=== PATIENT | female | born 1995 | race Caucasian/White ===

== ENCOUNTER 2023-12-09 08:49 | Inpatient (IN) | payer SELFPAY ==
[2023-12-09] VITALS (49 sets, daily range): BP systolic 92–124; BP diastolic 45–71; PULSE 41–93; RESP 16–19; TEMP 36.9; O2SAT 98–100; BMI 38.2
[2023-12-09 09:25] LABS: Charge for UA Resulting for Rev
[2023-12-09] MEDS: lactated ringers 1,000 ML 999 ML IV (09:30)
[2023-12-09 09:33] LABS: Basophils % 0.3 %; Eosinophils # 0.2 10^3/uL (0.0-0.8); Eosinophils % 1.8 %; Hematocrit 35.7 % (36-47); Lymphocytes # 1.3 10^3/uL (0.8-4.8); Lymphocytes % 10.4 %; Mean Corpuscular HGB Conc 34.2 g/dL (30-55); Mean Corpuscular Hemoglobin 30.5 pg (27-33); Mean Corpuscular Volume 89.3 fl (85-98); Mean Platelet Volume 11.5 fL (7.4-10.4); Monocytes # 0.7 10^3/uL (0.2-0.9); Monocytes % 6.1 %; Neutrophils # 9.81 10^3/uL (1.8-7.7); Neutrophils % 81.1 %; Nucleated Red Blood Cells % 0 %; Platelet Count 217 10^3/cmm (157-399); Red Cell Distribution Width 13.4 % (12.1-15.1); White Blood Count 12.11 10^3/uL (3.29-11.43)
[2023-12-09 09:35] LABS: Bilirubin Urine Negative (Negative); Blood Urine 3+ (Negative); Glucose Urine UA Negative (Normal); Ketones Urine Trace (Negative); Leukocyte Esterase Urine 2+ (Negative); Nitrate Urine Negative (Negative); Protein Urine Trace (Negative); Specific Gravity, Urine 1.024 (1.005-1.030); Urine Appearance Cloudy (CLEAR); Urine Color Yellow (Yellow)
[2023-12-09] MEDS: terbutaline 1 mg/mL INJ 0.25 MG SUBCUT (09:39)
[2023-12-09] MEDS: ampicillin 2,000 MG in sodium chloride 0.9% (plus) 50 ML 100 MG IV (09:39)
[2023-12-09 09:43] LABS: Bacteria Urine Trace /hpf; Hyaline Casts Urine 1.21 /lpf; Squamous Epithelial Cell Urine 0-5 /hpf (0-5); WBC Urine 21-50 /hpf (0-5)
--- NOTE | 2023-12-09 09:49 | P.ANESASSM_ITS ---
Pre-Anesthetic Assessment Height/Weight: Pulse Resp BP Pulse Ox 56 L 16 116/60 100 12/09/23 09:46 12/09/23 09:05 12/09/23 09:44 12/09/23 09:46 repeat Familial anesthetic complications: None Was Beta Chuyita taken within 24 hours: N/A Was Clonidine taken within 24 hours: N/A Last intake: > 8hrs Social Tobacco and No alcohol Exam alert, oriented x 3, clear to auscultation bilaterally and regular rate & rhythm Airway Mallampati: Class III Dentition: full Metabolic Morbid Obesity Anesthetic Plan ASA status: 2 Anesthesia: Regional (specify below) Risk of > 500 ml blood loss (7ml/kg in children): Yes, adequate IV access and fluids planned Medications/Allergies Current Medications Generic Name Dose Route Start Last Admin Trade Name Freq PRN Reason Stop Dose Admin Lactated Ringer's 1,000 mls @ 999 mls/hr 12/09/23 09:16 12/09/23 09:30 Lactated Ringers IV 999 mls/hr .Q1H1M PRN Administration BLEEDING Ampicillin Sodium 2,000 mg/ 50 mls @ 100 mls/hr 12/09/23 09:29 12/09/23 09:39 Sodium Chloride IV 12/09/23 09:58 100 mls/hr ONCE ONE Administration Protocol Data Anesthesia 12/09/23 09:05 12/09/23 09:05 Short CBC 12/09/23 Range/Units 09:05 WBC 12.11 H (3.29-11.43) 10^3/uL Hgb 12.20 (11.27-16.99) g/dL Hct 35.7 L (36-47) % MCV 89.3 (85-98) fl Plt Count 217 (157-399) 10^3/cmm Neut % (Auto) 81.1 % Neut # (Auto) 9.81 H (1.8-7.7) 10^3/uL Urine 12/09/23 Range/Units 09:05 Urine Color Yellow (Yellow) Urine Appearance Cloudy A (CLEAR) Urine pH 7.0 (5-7) Ur Specific [place] 1.024 (1.005-1.030) Urine Protein Trace A (Negative) Urine Glucose (UA) Negative (Normal) Urine Ketones Trace (Negative) Urine Nitrate Negative (Negative) Urine Bilirubin Negative (Negative) Ur Leukocyte Esterase 2+ H (Negative) Urine RBC 11-20 (0-2) /hpf Urine WBC 21-50 (0-5) /hpf Cardiac Studies: 2 No Data to Display
[2023-12-09 09:51] LABS: Add Urine Culture? Yes
[2023-12-09 09:52] LABS: Alanine Aminotransferase 13 U/L (0-33); Albumin Level 3.5 g/dL (3.5-5.2); Alkaline Phosphatase 109 U/L (35-105); Anion Gap 16.7 (5-19); Aspartate Amino Transferase 12 U/L (0-32); Blood Urea Nitrogen 8 mg/dL (6-20); Carbon Dioxide 18 mmol/L (22-29); Chloride 107 mmol/L (98-107); Globulin 3.2 g/dL (1.3-4.6); Glomerular Filtration Rate 119.9 mL/min (90-130); Glucose 88 mg/dL (65-115); Osmolality Calculated 284 mOsm/kg (285-295); Potassium 3.7 mmol/L (3.5-5.1); Sodium 138 mmol/L (136-145); Total Bilirubin 0.2 mg/dL (0.15-1.2); Total Protein 6.7 g/dL (6.6-8.7)
[2023-12-09 10:13] LABS: HIV 1 & 2 Antibody Non-Reactive (Non-Reactiv); HIV 1 & 2 Antigen Non-Reactive (Non-Reactiv)
[2023-12-09 10:19] LABS: Hepatitis B Surface Antigen Non-Reactive (Nonreactive)
[2023-12-09 10:20] LABS: Rapid Plasma Reagin Syphilis Nonreactive (Nonreactive)
--- NOTE | 2023-12-09 10:24 | P.HP_ITS ---
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 Patient denies vaginal bleeding or leakage of fluid. Patient has history of 2 previous sections 09/2020 emergency for decreased heart tones and 01/2023 repeat , without complications. Patient recently moved to [place] from [place] and has not called to be scheduled for care. She states her NINA is by early ultrasound. Risk and benefits of repeat section to include bleeding, infection, injury to pelvic organs reviewed with patient and patient verbalizes understanding and consent signed. EFM?category 2 with contractions every 3 to 5 minutes moderate intensity. Cervix?6 cm / 90%/-1 vertex presentation with bloody show noted. Past medical history?asthma, COPD Surgical history? x 2, tonsils and adenoids. Social history?patient admits to smoking cigarettes greater than 1 pack/day x 12 years and daily marijuana use last use 9 PM 12/08/2023. Occasional alcohol. Family history?relatively unknown is distant from her family. Present Details : 3 Para: 2 Review of Systems 2 General: Reports: 10 or more systems reviewed and unremarkable except in HPI and below Medications/Allergies Home Medications Medication Instructions Recorded Confirmed Last Taken Type No Known Home Medications 12/09/23 12/09/23 Unknown History Allergies Allergy/AdvReac Type Severity Reaction Status Date / Time adhesive Allergy ALGY-Rash Verified 12/09/23 10:15 Vitals/I&O/Wt Last Vital Signs Pulse 93 12/09/23 10:21 Resp 16 12/09/23 09:05 BP 116/60 12/09/23 09:44 Pulse Ox 100 12/09/23 10:21 O2 Del Method Room Air 12/09/23 09:33 Weight last 48 hrs Weight 110.677 kg Physical Exam 2 Narrative: 28-year-old female alert and orient x 3 in no acute distress HENMT: COMMON NORMALS: normocephalic Resp: COMMON NORMALS: normal respiratory effort and clear to auscultation bilaterally Cardio: COMMON NORMALS: regular rate, regular rhythm, S1 normal heart sound present, S2 normal heart sound present and No murmurs present (Cardio) Back/Pelvis: OTHER: Abdomen?soft, gravid no CVA tenderness to palpation. Cervix 6 cm / 90% effaced/-1 vertex presentation with bloody show Extremity: COMMON NORMALS: normal to inspection and no clubbing, cyanosis or edema Data 12/09/23 09:05 12/09/23 09:05 Results Labs OB ([facility]): 2 Blood Type A Positive 12/09/23 Antibody Screen Negative 12/09/23 Hct 35.7 % (36-47) L 12/09/23 Hgb 12.20 g/dL (11.27-16.99) 12/09/23 Rho(D) Type Rh positive 12/09/23 Plt Count 217 10^3/cmm (157-399) 12/09/23 Hep Bs Antigen Non-reactive (Nonreactive) 12/09/23 Rubella IgG Antibody Pending 12/09/23 RPR Nonreactive (Nonreactive) 12/09/23 HIV 1&2 Ab & HIV 1 Ag Non-reactive (Non-Reactiv) 12/09/23 C.trachomatis RNA (TMA) Pending 12/09/23 N.gonorrhoeae RNA (TMA) Pending 12/09/23 Chlamydia/GC Comment Pending 12/09/23 Urine Opiates Screen Pending 12/09/23 Ur Barbiturates Screen Pending 12/09/23 Ur Phencyclidine Scrn Pending 12/09/23 Ur Amphetamines Screen Pending 12/09/23 U Benzodiazepines Scrn Pending 12/09/23 Urine Cocaine Screen Pending 12/09/23 U Marijuana (THC) Screen Pending 12/09/23 Micro Urine Specimen 12/09/23 A&P Assessment and plan (1) 36 weeks gestation of : (2) Active labor: Treated with antibiotics due to unknown GBS status. (3) Previous section: (4) Asthma: (5) Tobacco abuse: (6) Marijuana use during : Plan Admit to labor and delivery and prepare for repeat section. Attestations 2 Medical Necessity Statement*: Patient admitted to labor and delivery at 36.6 weeks gestation in active labor at 6 cm dilation. Patient is previous x 2. And desires repeat section. Coding Level of Care Code Acute Code for Chg Fwd Diagnoses 36 weeks gestation of Z3A.36 Active labor O60.00 Previous section Z98.891 Asthma J45.909 Tobacco abuse Z72.0 Marijuana use during O99.320; F12.90
[2023-12-09] MEDS: famotidine 20 mg/2 mL INJ IVP (10:32)
[2023-12-09 10:37] LABS: Amphetamines Screen Urine Negative (Negative); Barbiturates Screen Urine Negative (Negative); Benzodiazepines Screen Urine Negative (Negative); Cocaine Screen Urine Negative (Negative); Opiate Screen Urine Negative (Negative); PCP Screen Urine Negative (Negative); THC Screen Urine Positive (Negative)
[2023-12-09] MEDS: ceFAZolin 2,000 mg SDV 2000 MG IVP (11:00)
[2023-12-09 11:03] LABS: Rubella IgG 27.3 IU/mL (0.0-10.0)
--- NOTE | 2023-12-09 12:00 | PM.OP ---
Operative Report Date of procedure: December 09, 2023 Pre-op diagnosis: 36.6-week IUP in active labor Previous x 2 Unknown GBS status Post-op diagnosis: Same Post-op findings: Viable female nuchal cord x 1 Procedure done: 28-year-old female delivered via repeat low-transverse section viable baby girl after being admitted to labor and delivery in active labor. Patient had history of previous x 2 and desired elective repeat . Upon admission patient was 3 cm and progressed to 6 cm. Risk and benefits of repeat were reviewed and consent signed. Patient was taken to the surgical suite after anesthesia consultation and spinal anesthesia plan placed. Patient was repositioned in the dorsolithotomy position and dopplered heart tones in the 130s. Livingston catheter was placed for drainage during the procedure and the abdomen was prepped and draped in the standard fashion. Patient's pannus was taped up. Anesthesia level was found to be adequate. Pfannenstiel incision was made through the previous scar and dissected to the fascia. The fascia was incised and the incision lateralized. The rectus muscles entered in the midline and the peritoneum opened bluntly. A bladder flap was created with Metzenbaums and pickups and displaced. A a lower uterine incision was made and extended laterally. The infant's vertex was delivered through the incision atraumatically, nuchal cord x 1 was easily removed. Followed by delivery of the anterior then posterior shoulders with the remainder of the baby's body to follow. Good baby movement and spontaneous cry noted. The oral and nasal pathways bulb suction the umbilical cord clamped and cut. The baby was placed on the warmer her java j2ee technical lead and nursing staff was present. Cord blood was obtained and handed off. The placenta was removed from the uterus, Pitocin added to the current infusing IV fluid in a bolus manner. The uterus was exteriorized wiped clean with a moist lap sponge. The uterine incision was then closed with 0 Vicryl in a running interlocking stitch with good approximation and hemostasis. The posterior cul-de-sac and the sidewalls were wiped clean with a moist lap sponge and the uterus replaced in the abdomen. The peritoneum and rectus muscle were closed with 2-0 Vicryl the fascia closed in a running stitch with 0 Vicryl. The subcu fat approximated with 2-0 Vicryl. And the skin closed with 4-0 Vicryl in a subcuticular stitch. Good hemostasis was noted. The incision was cleansed and covered with a pressure dressing. Needle instrument sponge count is correct. Specimens removed/disposition: Placenta Surgeon: Josiane Song DO Estimated blood loss (mL): 1,000 Urine output: 200ml Complications: None Findings: Viable baby girl Weight pending 8/9 Condition: stable Disposition: floor Brief History: 28-year-old female G3, P3 delivered by repeat low-transverse section. Procedure: See above procedure note
--- NOTE | 2023-12-09 12:30 | ANE.PACU2 ---
Inpatient post-anesthesia follow up: Airway intact: Yes Vital signs: Temperature 98.3 F Pulse Rate 57 Respiratory Rate 16 Blood Pressure 117/61 Pulse Oximetry 98 Oxygen Delivery Me thod Room Air Oxygen Flow Rate Fraction of Inspir ed Oxygen Hydration adequate: Yes Nausea and vomiting: No Pain level: 1 Mental status: Baseline
[2023-12-09] MEDS: lactated ringers 1,000 ML 125 ML IV (15:04)
[2023-12-09] MEDS: ketorolac 30 mg/mL INJ IVP (18:49)
[2023-12-09] MEDS: sodium chloride 0.9% 500 ML 999 ML IV (18:54)
[2023-12-09] MEDS: HYDROcodone-acetaminophen 5-325 mg Tablet PO ×2 (20:17→23:47)
[2023-12-09] MEDS: simethicone 80 mg Chew PO (21:49)
[2023-12-09 23:47] LABS: Hematocrit 28.8 % (36-47); Mean Corpuscular HGB Conc 33.3 g/dL (30-55); Mean Corpuscular Hemoglobin 30.4 pg (27-33); Mean Corpuscular Volume 91.1 fl (85-98); Mean Platelet Volume 11.5 fL (7.4-10.4); Platelet Count 176 10^3/cmm (157-399); Red Blood Count 3.16 10^6/uL (3.85-5.65); Red Cell Distribution Width 13.8 % (12.1-15.1); White Blood Count 11.28 10^3/uL (3.29-11.43)
[2023-12-10] MEDS: ketorolac 30 mg/mL INJ IVP (01:12)
[2023-12-10 01:30] VITALS: BP 96/54; PULSE 44
[2023-12-10 06:14] VITALS: BP 91/49; PULSE 53
[2023-12-10] MEDS: PRENATAL VIT NO.130/IRON/FOLIC 1 EACH TABLET PO (08:29)
[2023-12-10] MEDS: HYDROcodone-acetaminophen 5-325 mg Tablet PO ×3 (08:29→20:03)
[2023-12-10] MEDS: ferrous sulfate EC 325 mg Tablet PO ×2 (08:30→17:03)
[2023-12-10] MEDS: docusate sodium 100 mg Capsule PO ×2 (08:30→17:04)
--- NOTE | 2023-12-10 10:20 | P.PN_ITS ---
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 Patient doing well, denies dizziness, headache, chest pain or shortness of breath. Has been ambulating in room, and tolerating a regular diet and voiding. VSS?afebrile BP 91/49 Bandage removed, incision clean dry and intact. Discussed postop expectations of diet and ambulation. Patient encouraged to contact nursing staff if dizziness headaches chest pain or shortness of breath occur, and excessive vaginal bleeding. Patient verbalizes understanding. Also discussed probable home in the a.m. if no problems. Will need to follow-up with the women's clinic for follow-up. Patient encouraged to continue vitamins and iron daily due to postop anemia. Labor: Station: -3 Amniotic Membrane Status: Intact Monitor Mode: External Contraction Pattern: Regular Vitals/I&O/Wt Last Vital Signs Temp 98.4 F 12/09/23 12:25 Pulse 53 L 12/10/23 06:14 Resp 18 12/09/23 12:30 BP 91/49 12/10/23 06:14 Pulse Ox 98 12/09/23 12:30 O2 Del Method Room Air 12/09/23 12:30 12/09/23 12/10/23 12/10/23 22:59 06:59 14:59 Intake Total 979.167 / 3229.167 2000.833 / 5230.000 Output Total 125 / 1485 375 / 1860 Balance 854.167 / 5204.158 1819.833 / 3370 Weight last 48 hrs Weight 110.677 kg Physical Exam 2 Back/Pelvis: OTHER: Abdomen?soft, fundus firm Lochia light Incision?clean dry and intact. Extremity: COMMON NORMALS: normal to inspection, no clubbing, cyanosis or edema and no calf tenderness Urinary Catheter Management: Livingston Latex: Cath Placed During This Visit: yes Reason for Continuing Indwelling Catheter: Acute Urinary Retention or Obstruction Urinary Catheter Date of Insertion: 12/09/23 Urinary Catheter Time of Insertion: 11:00 Data 12/09/23 23:39 12/09/23 09:05 A&P Assessment and plan (1) Acute blood loss anemia: Acute blood loss anemia?asymptomatic Encourage continuation of vitamins and iron daily (2) 36 weeks gestation of : (3) Active labor: (4) Previous section: S/p repeat low-transverse section (x3). (5) Asthma: (6) Tobacco abuse: Smoking cessation discussed. (7) Marijuana use during : Illegal drug use discouraged. Attestations 2 Medical Necessity Statement*: Admission to labor and delivery for management of labor, desires repeat C- section. Coding Level of Care Code Acute Code for Chg Fwd Diagnoses Acute blood loss anemia D62 36 weeks gestation of Z3A.36 Active labor O60.00 Previous section Z98.891 Asthma J45.909 Tobacco abuse Z72.0 Marijuana use during O99.320; F12.90
[2023-12-10 10:40] VITALS: BP 101/63; PULSE 51; RESP 16; TEMP 36.8
[2023-12-10 15:18] LABS: Chlamydia Trachomatis RNA TMA NOT DETECTED (NOT DETECTED); Neisseria Gonorrhoeae RNA, TMA NOT DETECTED (NOT DETECTED)
[2023-12-10] MEDS: ibuprofen 800 mg tablet PO ×2 (17:03→20:03)
[2023-12-10] MEDS: hyDROXYzine 25 mg Capsule 50 MG PO (17:14)
[2023-12-10 22:00] VITALS: RESP 16; TEMP 36.8
[2023-12-10 22:14] VITALS: BP 117/61; PULSE 57
[2023-12-10] MEDS: simethicone 80 mg Chew PO (22:15)
[2023-12-11 04:00] VITALS: RESP 18; TEMP 36.8
[2023-12-11 04:32] VITALS: BP 123/80; PULSE 60
[2023-12-11] MEDS: simethicone 80 mg Chew PO (04:34)
[2023-12-11] MEDS: HYDROcodone-acetaminophen 5-325 mg Tablet PO ×2 (04:34→08:51)
[2023-12-11] MEDS: docusate sodium 100 mg Capsule PO (08:06)
[2023-12-11] MEDS: ferrous sulfate EC 325 mg Tablet PO (08:06)
[2023-12-11] MEDS: PRENATAL VIT NO.130/IRON/FOLIC 1 EACH TABLET PO (08:06)
[2023-12-11] MEDS: ibuprofen 800 mg tablet PO (08:06)
--- NOTE | 2023-12-11 09:24 | PM.OBGYDC ---
Discharge Providers MAIL ORDER SORTER Date of Admission: 12/09/23 08:49 Date of Discharge: 12/11/23 Attending Provider at Admission: Josiane Song DO Attending Provider at Discharge: Tyson Perales MD Diagnoses at Discharge Discharge Diagnosis (1) Acute blood loss anemia: Status: Acute (2) 36 weeks gestation of : Status: Acute (3) Active labor: Status: Acute (4) Previous section: Status: Acute (5) Asthma: Status: Acute (6) Tobacco abuse: Status: Acute (7) Marijuana use during : Status: Acute Reason for Visit Reason for Visit: contractions Hospital Course Hospital Course Nadine Joshi is a 28 year old female G3, P2 at 36.6 weeks gestation with NINA 12/31/2023 admitted to labor and delivery with complaints of painful uterine contractions onset the night before coming to labor and delivery. Patient denies vaginal bleeding or leakage of fluid. Patient has history of 2 previous sections. Patient recently moved to [place] from [place] and has not called to be scheduled for care. She states her NINA is by early ultrasound. Came to labor and delivery in active labor. A repeat low-transverse delivery was performed without complication. Postop observation have been uneventful. He is afebrile and hemodynamically stable postoperative day 2. Tolerating diet well. Ambulating without difficulty. She was counseled regarding pelvic rest for 6 weeks (no sex, no tampons, no vaginal douches). Return to the emergency room if any fever, increased bleeding or pain. Information Peripartum Data: Delivery Method: Physical Exam Narrative: GA; alert and oriented x 3 HEENT: normal Breasts: engorged Nipples - skin intact Lungs; clear to auscultation Heart: regular rhythm, no murmurs. Abd: Appropriately tender. BS+. Uterine fundus below umbilicus. No Fundal Tenderness, minimal tenderness, incision clean and dry, no redness, pain or edema Perineum: normal lochia. Extremities: no edema, no cyanosis, no tenderness. Urinary Catheter Management: Livingston Latex: Cath Placed During This Visit: yes, but has since been removed by the nurse Reason for Continuing Indwelling Catheter: Acute Urinary Retention or Obstruction Urinary Catheter Date of Insertion: 12/09/23 Urinary Catheter Time of Insertion: 11:00 Date Urinary Catheter Removed: 12/10/23 Time Urinary Catheter Discontinued: 10:00 Discharge Data Studies Completed and Pending Pending at discharge Category Date Time Status Urine Culture Stat Lab 12/09/23 09:05 Results Laboratory Results WBC 11.28 10^3/uL (3.29-11.43) 12/09/23 23:39 RBC 3.16 10^6/uL (3.85-5.65) L 12/09/23 23:39 Hgb 9.60 g/dL (11.27-16.99) L 12/09/23 23:39 Hct 28.8 % (36-47) L 12/09/23 23:39 MCV 91.1 fl (85-98) 12/09/23 23:39 MCH 30.4 pg (27-33) 12/09/23 23:39 MCHC 33.3 g/dL (30-55) 12/09/23 23:39 RDW 13.8 % (12.1-15.1) 12/09/23 23:39 Plt Count 176 10^3/cmm (157-399) 12/09/23 23:39 MPV 11.5 fL (7.4-10.4) H 12/09/23 23:39 Neut % (Auto) 81.1 % 12/09/23 09:05 Lymph % (Auto) 10.4 % 12/09/23 09:05 [place] % (Auto) 6.1 % 12/09/23 09:05 Eos % (Auto) 1.8 % 12/09/23 09:05 Baso % (Auto) 0.3 % 12/09/23 09:05 Neut # (Auto) 9.81 10^3/uL (1.8-7.7) H 12/09/23 09:05 Lymph # (Auto) 1.3 10^3/uL (0.8-4.8) 12/09/23 09:05 [place] # (Auto) 0.7 10^3/uL (0.2-0.9) 12/09/23 09:05 Eos # (Auto) 0.2 10^3/uL (0.0-0.8) 12/09/23 09:05 Baso # (Auto) 0.0 10^3/uL (0.0-0.1) 12/09/23 09:05 Nucleated RBC % (auto) 0 % 12/09/23 09:05 Nucleated RBCs # 0.0 /100WBC 12/09/23 09:05 Sodium 138 mmol/L (136-145) 12/09/23 09:05 Potassium 3.7 mmol/L (3.5-5.1) 12/09/23 09:05 Chloride 107 mmol/L (98-107) 12/09/23 09:05 Carbon Dioxide 18 mmol/L (22-29) L 12/09/23 09:05 Anion Gap 16.7 (5-19) 12/09/23 09:05 BUN 8 mg/dL (6-20) 12/09/23 09:05 Creatinine 0.6 mg/dL (0.5-0.9) 12/09/23 09:05 GFR Calculation 119.9 mL/min (90-130) 12/09/23 09:05 Glucose 88 mg/dL (65-115) 12/09/23 09:05 Calculated Osmolality 284 mOsm/kg (285-295) L 12/09/23 09:05 Calcium 9.0 mg/dL (8.5-10.5) 12/09/23 09:05 Total Bilirubin 0.2 mg/dL (0.15-1.2) 12/09/23 09:05 AST 12 U/L (0-32) 12/09/23 09:05 ALT 13 U/L (0-33) 12/09/23 09:05 Alkaline Phosphatase 109 U/L (35-105) H 12/09/23 09:05 Total Protein 6.7 g/dL (6.6-8.7) 12/09/23 09:05 Albumin 3.5 g/dL (3.5-5.2) 12/09/23 09:05 Globulin 3.2 g/dL (1.3-4.6) 12/09/23 09:05 Urine Color Yellow (Yellow) 12/09/23 09:05 Urine Appearance Cloudy (CLEAR) A 12/09/23 09:05 Urine pH 7.0 (5-7) 12/09/23 09:05 Ur Specific [place] 1.024 (1.005-1.030) 12/09/23 09:05 Urine Protein Trace (Negative) A 12/09/23 09:05 Urine Glucose (UA) Negative (Normal) 12/09/23 09:05 Urine Ketones Trace (Negative) 12/09/23 09:05 Urine Blood 3+ (Negative) A 12/09/23 09:05 Urine Nitrate Negative (Negative) 12/09/23 09:05 Urine Bilirubin Negative (Negative) 12/09/23 09:05 Urine Urobilinogen 1.0 mg/dL (Negative) 12/09/23 09:05 Ur Leukocyte Esterase 2+ (Negative) H 12/09/23 09:05 Urine RBC 11-20 /hpf (0-2) 12/09/23 09:05 Urine WBC 21-50 /hpf (0-5) 12/09/23 09:05 Ur Squamous Epith Cells 0-5 /hpf (0-5) 12/09/23 09:05 Amorphous Sediment Not Reportable 12/09/23 09:05 Urine Bacteria Trace /hpf (NONE) 12/09/23 09:05 Hyaline Casts 1.21 /lpf 12/09/23 09:05 Urine Opiates Screen Negative ng/mL (Negative) 12/09/23 09:05 Ur Barbiturates Screen Negative ng/mL (Negative) 12/09/23 09:05 Ur Phencyclidine Scrn Negative ng/mL (Negative) 12/09/23 09:05 Ur Amphetamines Screen Negative ng/mL (Negative) 12/09/23 09:05 U Benzodiazepines Scrn Negative ng/mL (Negative) 12/09/23 09:05 Urine Cocaine Screen Negative ng/mL (Negative) 12/09/23 09:05 U Marijuana (THC) Screen Positive ng/mL (Negative) H 12/09/23 09:05 RPR Nonreactive (Nonreactive) 12/09/23 09:05 C.trachomatis RNA (TMA) Not detected (NOT DETECTED) 12/09/23 09:05 Chlamydia/GC Comment See note 12/09/23 09:05 Hep Bs Antigen Non-reactive (Nonreactive) 12/09/23 09:05 HIV 1&2 Ab & HIV 1 Ag Non-reactive (Non-Reactiv) 12/09/23 09:05 HIV 1&2 Antibody Non-reactive (Non-Reactiv) 12/09/23 09:05 N.gonorrhoeae RNA (TMA) Not detected (NOT DETECTED) 12/09/23 09:05 Rubella IgG Antibody 27.3 IU/mL (0.0-10.0) H 12/09/23 09:05 Blood Type A Positive 12/09/23 09:05 Rho(D) Type Rh positive 12/09/23 09:05 Antibody Screen Negative 12/09/23 09:05 Vitals Last Vital Signs Temp 98.3 F 12/11/23 04:00 Pulse 60 12/11/23 04:32 Resp 18 12/11/23 04:00 BP 123/80 12/11/23 04:32 Pulse Ox 98 12/09/23 12:30 O2 Del Method Room Air 12/11/23 04:00 Results Labs OB ([facility]): Blood Type A Positive 12/09/23 Antibody Screen Negative 12/09/23 Hct 28.8 % (36-47) L 12/09/23 Hgb 9.60 g/dL (11.27-16.99) L 12/09/23 Rho(D) Type Rh positive 12/09/23 Plt Count 176 10^3/cmm (157-399) 12/09/23 Hep Bs Antigen Non-reactive (Nonreactive) 12/09/23 Rubella IgG Antibody 27.3 IU/mL (0.0-10.0) H 12/09/23 RPR Nonreactive (Nonreactive) 12/09/23 HIV 1&2 Ab & HIV 1 Ag Non-reactive (Non-Reactiv) 12/09/23 C.trachomatis RNA (TMA) Not detected (NOT DETECTED) 12/09/23 N.gonorrhoeae RNA (TMA) Not detected (NOT DETECTED) 12/09/23 Chlamydia/GC Comment See note 12/09/23 Urine Opiates Screen Negative ng/mL (Negative) 12/09/23 Ur Barbiturates Screen Negative ng/mL (Negative) 12/09/23 Ur Phencyclidine Scrn Negative ng/mL (Negative) 12/09/23 Ur Amphetamines Screen Negative ng/mL (Negative) 12/09/23 U Benzodiazepines Scrn Negative ng/mL (Negative) 12/09/23 Urine Cocaine Screen Negative ng/mL (Negative) 12/09/23 U Marijuana (THC) Screen Positive ng/mL (Negative) H 12/09/23 Micro Urine Specimen 12/09/23 Discharge Plan Discharge Patient Disposition: Home Condition: Stable Prescriptions: New ibuprofen 800 mg tablet 800 mg PO TID PRN (Reason: pain) Qty: 60 0RF hydrocodone-acetaminophen 5-325 mg tablet 1 tab PO Q4H PRN (Reason: pain) Qty: 30 0RF ferrous sulfate [Iron (ferrous sulfate)] 325 mg (65 mg iron) tablet 325 mg PO BID Qty: 60 0RF docusate sodium [Colace] 100 mg capsule 100 mg PO BID Qty: 60 0RF acetaminophen 325 mg capsule 325 mg PO Q4H PRN (Reason: fever or pain) Qty: 60 0RF Discharge Orders: Discharge Order (Routine); Ordered 12/11/23 Ordered By: Tyson Perales Referrals: Tyson Perales MD [Physician] - 2 weeks Discharge Diet: Usual diet Discharge Activity: Limit activity as instructed Patient Instructions: Depression (DC), Opioid Safety (DC), Preeclampsia and Eclampsia After Delivery (GEN), Hemorrhage (DC), OB WHC, OB Discharge Report, OB Food/Drug Interaction Guide, Opioid Safety, OB Home Care, Abnormal Bleeding Activity Restrictions/Additional Instructions: 1. Please call [facility] on next working day to make your post-operative appointment in 2 weeks. 2. Please stay home until you come back to the clinic on first post-hospatilization check up. 3. Please follow instructions on your medications CAREFULLY. 4. If you have abdominal incision, do not cover it unless dressing is necessary because of drainage. OK to shower, but avoid bath. Leave steri-strips until they fall off. If they are still on one week after surgery, you may remove them. 5. If you had vaginal surgery or vaginal repair, Dr. Perales may instruct you to take SITZ bath. 6. Yellow, blood tinged odorous vaginal discharge is usually normal after hysterectomy or vaginal surgeries. 7. No SEXUAL INTERCOURSE, tampons, or douches until you are completely released from the post-operative care. 8. Avoid constipation by eating right and maybe using some Metamucil or Milk of Magnesia. 9. All prescription refills are given during the working hours. Please do no wait till it runs out. Call the clinic at [phone] before your medication runs out. The clinic will get in touch with your doctor to prescribe medications if necessary. 10. Please remain within 40 mile radius from our hospital because emergencies do happen now and then during the post-operative period. 11. If you have stairs at home, take one step at a time slowly and minimize the number of trips. It helps to stay in one floor for the next few days. No lifting except what you can lift by one hand until you are released from the post-operative care. 12. Driving is discouraged until you are well healed. It may be 3-4 weeks before you feel strong enough to drive. You should be able to turn and look through the rear window without pain and you should be able to push the brake pedal very hard without pain before you drive. No fast rules, but SAFETY should be your primary concern. DO NOT drive if you are on sedating medications such as narcotics. 13. Call the clinic (during working hours) to make urgent appointment or go to the Emergency room, if any of the following occurs: i. Vaginal bleeding becomes heavy, more than a period. ii. Incision becomes red and sore, or drains pus. iii. Your TEMPERATURE is over 100.4F or you have chill. iv. IV site becomes red and swollen (a little ``knot?? is usually OK) v. Persistent nausea and vomiting vi. Persistent constipation or diarrhea vii. Rash or allergic reaction to medications. Discharge Attestations MAIL ORDER SORTER Time Spent in Discharge Care*: greater than 30 min Coding Level of Care Code Acute Code for Chg Fwd Diagnoses Acute blood loss anemia D62 36 weeks gestation of Z3A.36 Active labor O60.00 Previous section Z98.891 Asthma J45.909 Tobacco abuse Z72.0 Marijuana use during O99.320; F12.90
[2023-12-11 13:38] VITALS: BP 138/73; PULSE 71; RESP 16; TEMP 36.4
[2023-12-11] MEDS: medroxyprogesterone 150 mg/ml SDV 1 mL IM (13:55)
[2023-12-11 14:00] VITALS: BP 138/73; PULSE 71; RESP 16; TEMP 36.4
== END 2023-12-11 14:07 | disposition home or self-care (01) | DRG 787 ==
PROVIDERS: Admitting Provider Obstetrics & Gynecology; Visit Provider Obstetrics & Gynecology
PROC: 10D00Z1 Extraction of Products of Conception, Low, Open Approach (ICD-10-PCS; CPT 59514; principal; 2023-12-09 11:00)
DX: O60.14X0 Preterm labor third trimester with preterm delivery third trimester, not applicable or unspecified (principal); D62 Acute posthemorrhagic anemia; O99.324 Drug use complicating childbirth; O99.334 Smoking (tobacco) complicating childbirth; F17.210 Nicotine dependence, cigarettes, uncomplicated; F12.90 Cannabis use, unspecified, uncomplicated; O69.81X0 Labor and delivery complicated by cord around neck, without compression, not applicable or unspecified; O34.211 Maternal care for low transverse scar from previous cesarean delivery; N85.8 Other specified noninflammatory disorders of uterus; O90.81 Anemia of the puerperium; O99.52 Diseases of the respiratory system complicating childbirth; J45.909 Unspecified asthma, uncomplicated; Z3A.36 36 weeks gestation of pregnancy; Z37.0 Single live birth
CPT/HCPCS: 36415; 51702; 59025; 59409; 80053; 80306; 81003; 81015; 85025; 85027; 86592; 86762; 86850; 86900; 87086; 87340; 87491; 87591; 87806; 96372; 96374; 96376; 99211; J0290; J0690; J1050; J1885; J2274; J2371; J2405; J3105; J3490; J7040; J7120